=== PATIENT | male | born 1955 | race Caucasian/White ===

== ENCOUNTER → 2020-07-25 | Outpatient (CLI) | payer BC | END | disposition home or self-care (01) | LOC: LABWHC1 14:30 | PROVIDERS: ATTEND Nurse Practitioner Adult Health | DX: R50.9 Fever, unspecified (principal) | CPT/HCPCS: U0003; C9803 ==

== ENCOUNTER → 2020-10-12 | Outpatient (CLI) | payer BC ==
--- NOTE | 2020-10-12 13:37 | EST ---
EXERCISE STRESS AGE: 65 SEX: M HT: 5'10" WT: 300 lbs. PROTOCOL: Migel STAGE: 2 DURATION OF EXERCISE: 5:22 HEART RATE REST: 64 BLOOD PRESSURE REST: 141/81 MAXIMUM HEART RATE ACHIEVED: 113 MAXIMUM BLOOD PRESSURE: 214/77 85% MPHR: 133 100% MPHR: 156 METS: 7.1 INDICATIONS: Chest pain. CLINICAL INFORMATION: Baseline EKG shows sinus rhythm, normal axis, normal intervals. Patient exercised on Migel protocol for a total of 5.5 minutes, achieving 6 METS, 72% of predicted maximal heart rate without chest pain. At peak exercise, there was 0.[address]-segment depression noted in the inferolateral leads. CONCLUSIONS: 1. Limited exercise tolerance. 2. Inconclusive EKG part of the stress test due to inability to attain target heart rate. MMODL / IJN: [id number] /
== END | disposition home or self-care (01) ==
LOC: RADNMMAIN 08:26
PROVIDERS: ATTEND Family Medicine
DX: R07.9 Chest pain, unspecified (principal); R53.83 Other fatigue
CPT/HCPCS: 93017

== ENCOUNTER → 2020-11-09 | Outpatient (CLI) | payer BC ==
--- NOTE | 2020-11-09 10:12 | P.STRESS ---
- Stress Test Note Stress Test Results/Findings: Exam Performed: stress echo exercise with con Exam Date: 11/09/20 Reason for Exam: soo Height: 5 ft 10 in Weight: 300 kg Protocol: tita Stage: 2 Duration of Exercise: 5 min 41 sec Resting Heart Rate: 70 Resting Blood Pressure: 120/76 Maximum Achieved Heart Rate: 131 Maximum Achieved Blood Pressure: 190/89 85% PMHR: 133 100% PMHR: 156 METS: 7.1 Technologist Comment: Stress Test Results/Findings: Patient underwent exercise stress echo with a Tita protocol treadmill stress test. Patient exercised into Stage 2 for a total of 5 minutes 41 seconds reaching a total of 7.1 METS. Patient's maximum heart rate was 131 which represented 84% age-predicted maximum heart rate. Test was terminated secondary to fatigue. Stress EKG portion: At baseline patient's EKG showed normal sinus rhythm, normal axis, no significant ST or T wave abnormalities. At peak exercise, EKG showed nonspec ific 0.[address] depressions in the inferior lateral leads. Stress echo portion: 2-D echocardiogram was performed in the parasternal long, personal short, apical 2 and apical four-chamber views at rest, peak exercise and in recovery. At baseline, echocardiogram showed left ventricular ejection fraction 60% without wall motion abnormalities. With peak exercise, echocardiogram shows improvement in left ventricular ejection fraction, increase contractility, decrease in left ventricular dimension without wall motion abnormalities consistent with a normal response to exercise. Conclusions: 1. Nondiagnostic study secondary to inability to reach 85% maximum predicted heart rate however at given exercise, normal EKG and echo response to exercise without inducible ischemia. 2. Poor exercise capacity.
--- NOTE | 2020-11-09 12:28 | ECHOS ---
Stress Test Results/Findings: Exam Performed: stress echo exercise with con Exam Date: 11/09/20 Reason for Exam: soo Height: 5 ft 10 in Weight: 300 kg Protocol: tita Stage: 2 Duration of Exercise: 5 min 41 sec Resting Heart Rate: 70 Resting Blood Pressure: 120/76 Maximum Achieved Heart Rate: 131 Maximum Achieved Blood Pressure: 190/89 85% PMHR: 133 100% PMHR: 156 METS: 7.1 Technologist Comment: Stress Test Results/Findings: Patient underwent exercise stress echo with a Tita protocol treadmill stress test. Patient exercised into Stage 2 for a total of 5 minutes 41 seconds reaching a total of 7.1 METS. Patient's maximum heart rate was 131 which represented 84% age-predicted maximum heart rate. Test was terminated secondary to fatigue. Stress EKG portion: At baseline patient's EKG showed normal sinus rhythm, normal axis, no significant ST or T wave abnormalities. At peak exercise, EKG showed nonspecific 0.[address] depressions in the inferior lateral leads. Stress echo portion: 2-D echocardiogram was performed in the parasternal long, personal short, apical 2 and apical four-chamber views at rest, peak exercise and in recovery. At baseline, echocardiogram showed left ventricular ejection fraction 60% without wall motion abnormalities. With peak exercise, echocardiogram shows improvement in left ventricular ejection fraction, increase contractility, decrease in left ventricular dimension without wall motion abnormalities consistent with a normal response to exercise. Conclusions: 1. Nondiagnostic study secondary to inability to reach 85% maximum predicted heart rate however at given exercise, normal EKG and echo response to exercise without inducible ischemia. 2. Poor exercise capacity. MTDD
== END | disposition home or self-care (01) ==
LOC: RADNMMAIN 09:05
PROVIDERS: ATTEND Family Medicine
DX: R06.02 Shortness of breath (principal); R94.39 Abnormal result of other cardiovascular function study
CPT/HCPCS: 93351; Q9950